=== PATIENT | male | born 1980 | race Caucasian/White ===

== ENCOUNTER 2019-09-25 12:31 | Emergency (ER) | payer MEDICAID, OTHER ==
[~2019-09-25] VITALS: Ht 172.7 cm; Wt 63.5 kg
[2019-09-25 13:32] LABS: BASOPHILS % (AUTO) 0.6 % (0.0-2.0); EOSINOPHILS # (AUTO) 0.1 K/uL (0.0-0.7); EOSINOPHILS % (AUTO) 1.6 % (0.0-7.0); HEMATOCRIT 44.1 % (36.7-47.1); HEMOGLOBIN 14.8 g/dL (12.5-16.3); LYMPHOCYTES # (AUTO) 1.3 K/uL (20.0-40.0); LYMPHOCYTES % (AUTO) 27.5 % (20.5-51.5); MEAN CORPUSCULAR HEMOGLOBIN 31.9 uug (23.8-33.4); MEAN CORPUSCULAR HGB CONC 34 g/dL (32.5-36.3); MEAN CORPUSCULAR VOLUME 94.8 fL (73.0-96.2); MONOCYTES # (AUTO) 0.4 K/uL (2.0-10.0); MONOCYTES % (AUTO) 7.6 % (0.0-11.0); NEUTROPHILS # (AUTO) 2.9 K/uL (1.8-8.9); NEUTROPHILS % (AUTO) 62.7 % (38.5-71.5); PLATELET COUNT (AUTO) 158 K/uL (152-348); RED BLOOD CELL COUNT(AUTO) 4.65 MIL/uL (4.06-5.63); WHITE BLOOD COUNT (AUTO) 4.7 K/uL (3.6-10.2)
[2019-09-25 13:43] LABS: CREATININE 1.1 mg/dL (0.6-1.3); POTASSIUM 4.2 mmol/L (3.5-5.1)
[2019-09-25 13:56] LABS: BILIRUBIN,DIRECT 0.1 mg/dL (0.0-0.2); BILIRUBIN,TOTAL 0.6 mg/dL (0.2-1.0); TOTAL PROTEIN, SERUM 7.5 g/dL (6.4-8.2)
--- NOTE | 2019-09-25 14:45 | NUR ---
PT WAS EVALUATED BY DR IGLESIAS. PT WAS D/C'd TO HOME. D/C INSTRUCTIONS GIVEN TO THE PT. PT DENIES PAIN . GAIT IS STABLE. NO SOB. NO N/V. NO S/S OF DISTRESS AT THIS TIME.
[2019-09-25 14:49] VITALS: BP 112/65
== END 2019-09-25 14:50 | disposition home or self-care (01) ==
LOC: ER 12:31
DX: R07.89 Other chest pain (principal)
CPT/HCPCS: 36415; 70030-TC; 71045; 84443; 85025; 85730; 93005; A4663